=== PATIENT | female | born 1960 | race Caucasian/White ===

== ENCOUNTER 2016-12-31 11:16 | Day surgery (SDC) | payer MEDICARE, MEDICAID ==
[~2016-12-31] VITALS: Ht 170.2 cm; Wt 66.6 kg
[2016-12-31] VITALS (7 sets, daily range): BP systolic 106–122; BP diastolic 66–73; PULSE 55–84; RESP 13–18; O2SAT 93–100
[~2016-12-31 11:16] MED LIST: ALBU8.5H2 INHALATION; ALPR2TAB6 PO; Albuterol 2.5 mg/3 mL Inhalation Solution NEB PRN; DILT120T3 PO; DULO60CA42 PO; Lactated Ringer's 1,000 ML IV ONE; OMEP20CA11 PO; TOPI200T17 PO
[2016-12-31] MEDS ORDERED: Neostigmine 1 mg/mL 10 mL Inj ONE (11:17)
[2016-12-31] MEDS ORDERED: fentaNYL-PF 50 mCg/mL 2 mL Inj ONE (11:17)
[2016-12-31] MEDS ORDERED: Dexamethasone 4 mg/mL Inj ONE (11:17)
[2016-12-31] MEDS ORDERED: Glycopyrrolate 0.2 MG/ML 1mL Inj ONE (11:17)
[2016-12-31] MEDS ORDERED: Ketamine 10 mg/mL 20 mL Inj ONE (11:17)
[2016-12-31] MEDS ORDERED: Ondansetron 2 mg/mL 2 mL Inj ONE (11:17)
[2016-12-31] MEDS ORDERED: Remifentanil 1 mg/3 mL Inj ONE (11:17)
[2016-12-31] MEDS ORDERED: Rocuronium 10 mg/mL 5 mL Inj ONE (11:17)
[2016-12-31] MEDS ORDERED: Propofol 10,000 mCg/mL 20 mL Inj ONE (11:17)
[2016-12-31] MEDS ORDERED: ACET500C49 PO (12:55)
[2016-12-31] MEDS ORDERED: Lactated Ringer's 500 ML IV PRN (14:47)
[2016-12-31] MEDS ORDERED: Lactated Ringer's 1,000 ML IV SCH (14:47)
--- NOTE | 2016-12-31 14:47 | PCM.HPANE ---
Patient Data Surgeon Admitting Provider: Attending Provider:Memo Monterroso MD Primary Care Physician:Christin Gutierrez MD Other Provider:Josefa Snellingham Anesthesia Reason for Visit Papillary Thyroid Cancer Ht/WT & BMI Height (Feet): 5 Height (Inches): 7 Weight (Kilograms): 65.8 Body Mass Index 22.00 Allergies Coded Allergies: Cat Dander (Verified Allergy, Unknown, 12/31/16) Sulfa (Sulfonamide Antibiotics) (Verified Allergy, Unknown, hives, 12/31/16 ) bupropion (Verified Allergy, Unknown, NAUSEA AND MALAISE, 12/31/16) carbamazepine (Verified Allergy, Unknown, nauseated, 12/31/16) oxycodone (Verified Allergy, Unknown, gi upset, 12/31/16) Uncoded Allergies: SEREVENT INHALER (Allergy, Unknown, caused more difficulty breathing, ) Past Anesthesia History Anesthesia History: Denies:: Abnormal Airway, Anesthesia Reactions, Difficult Intubation, Fam Anesthesia Reaction, Fam Malignant Hypertherm, Malignant Hyperthermia Diabetes History Hx Diabetes?: No MRSA MRSA: No Medications Hypertension Medication: No Reported Medications Acetaminophen 500 Mg [id number] Mg PO 12/31/16 Topiramate (Topamax)200 Mg [id number] Mg PO DAILY Ref 0 12/26/16 Omeprazole 20 Mg Capsule.dr20 Mg PO DAILY Ref 0 12/26/16 Diltiazem 120 Mg [id number] Mg PO DAILY 12/26/16 Duloxetine (Cymbalta)60 Mg Capsule.dr60 Mg PO DAILY Ref 0 12/26/16 Alprazolam 2 Mg Tablet2 Mg PO BID PRN For Anxiety Ref 0 12/26/16 Albuterol HFA (Proair HFA)8.5 Gm Hfa.aer.ad2 Puffs INHALATION Q4H PRN For Shortness of Breath #1 INHALER 12/26/16 History History of ENT Problems?: Yes HEENT History: Positive for:: Dysphagia Denies:: Abnormal Airway Cataracts (left eye has dilation problems- floaters- may not dilate correctly) Difficult Intubation Glaucoma Hearing Problem Sinus Problem (with air quality currently- ) TMJ Denture Type: None Teeth Condition: Missing Teeth Hx of Heart Problems?: Yes Cardiovascular History: Positive for:: Irregular Heartbeat (palpitations) Denies:: AICD Heart Murmur Hypertension Pacemaker Peripheral Vascular Hx of Respiratory Problem?: Yes Respiratory History: Positive for:: Asthma Cough (smokers cough) Use of Inhalers / NEBS Denies:: Emphysema Oxygen Administration Pneumonia Tuberculosis (tested pos age 16, took medications "didnt 'have" disease) Use of C-PAP Machine Hx Neurologic Problems?: Yes Neurological History: Positive for:: Headaches (infrequent since menopause ) Seizures (febrile seizure as child ) Denies:: Alzheimer's Disease Dementia Multiple Sclerosis Parkinson's Disease Hx of GI Problems?: Yes Hx of Problems?: No Genitourinary History: Denies:: Kidney Stones Urinary Tract Infection Female Hx: Denies:: Currently (hx of tubal) Problems with Breasts? Skin History: Denies:: History Skin Disorders? Pressure Ulcers Hx Musculoskeletal Problems?: Yes Musculoskeletal History: Positive for:: Osteoarthritis (hands ) Rheumatoid Arthritis (may not be exact diagnosis, sees in [facility]) Denies:: Back Injury Fibromyalgia Joint Replacement Myasthenia Gravis Systemic Lupus Hx of Psycho/Social Problems?: Yes Psycho Social History: Positive for:: Anxiety Hx Surgeries?: Yes (tubal, right inguinal hernia, left ovarian cyst, right foot ) Hx Any Other Health Problems?: Yes Other History: Positive for:: Cancer (current admission problem) Thyroid Disease (current admission problem) History Blood Transfusions: Positive for:: Accept Blood Products? Denies:: Blood Transfusions Hx Diabetes: No Hx Alcohol Use: NoHx Substance Use: NoHave You Smoked inLast 12 mo: Yes Stop/Bang S-Snoring: Do You Snore Loudly: No T-Tired: feel tired, fatigued: Yes O-Obsered: Observed not breath: No P-Blood Pressure: treated: No B- Body Mass Index > 35 kg/m2: No A- Age over 50: Yes N- Neck Large Circumference: No G- Gender Male: No NÉSTOR Total Score: 2 NÉSTOR Risk Assessment: Low Risk, <3 Yes Risk Assessment Category Category 1A: Patient has history of documented sleep apnea, and HAS NOT received any narcotic, sedative or anesthesia administration during this stay. Category 1B: Patient has history of documented sleep apnea, and HAS received any narcotic , sedative or anesthesia administration during this stay Category 2: Patient has SUSPECTED Obstructive Sleep Apnea, and HAS received any narcotic , sedative or anesthesia administration during this stay. Category 3: Patient has SUSPECTED Obstructive Sleep Apnea and HAS NOT received narcotic, sedative or anesthesia administration during this stay. Category 4: Outpatient in Procedural Areas with known sleep apnea or who screen positive for High Risk via the STOP/BANG questionnaire. Exam Exam Vital Signs Vital Signs Date Time Temp Pulse Resp B/P Pulse Ox O2 Delivery O2 Flow Rate FiO2 12/31/16 11:36 36.0 55 15 106/66 99 Room Air General Appearance: Alert HEENT/AIRWAY: MP 2, Neck Movement (from, 3 fb) Lungs: Clear to Auscultation Heart: Regular Rate/Rhythm Plan Impression Patient chart reviewed, patient interviewed and anesthestic plan with risks, benefits, and alternatives discussed, and informed consent obtained. NPO per Anesth. Guidelines: Yes ASA Physical Status: ASA2 Mod Systemic Disease Anesthetic Plan: GA Bene/Risks/Altern/Consents: Yes HP Complete Prior to Induction: Yes Other Discussed GETA. All questions were answered and she agrees to proceed. Fantasma Mcdowell MD Dec 31, 2016 11:52
[2016-12-31] MEDS ORDERED: Ondansetron 2 mg/mL 2 mL Inj IVPUSH PRN ×2 (14:50→16:30)
[2016-12-31] MEDS ORDERED: Phenylephrine 10,000 mCg/mL Inj IVPUSH PRN (14:50)
[2016-12-31] MEDS ORDERED: fentaNYL-PF 50 mCg/mL 2 mL Inj IVPUSH PRN (14:50)
[2016-12-31] MEDS ORDERED: HYDROmorphone 1 mg/mL Inj IVPUSH PRN ×2 (14:50→16:30)
[2016-12-31] MEDS ORDERED: MetoCLOpramide 5 mg/mL 2 mL Inj IVPUSH PRN ×2 (14:50→16:30)
[2016-12-31] MEDS ORDERED: EPHEDrine Sulfate 50 mg/mL Inj IVPUSH PRN (14:50)
[2016-12-31] MEDS ORDERED: Dexamethasone 4 mg/mL Inj IVPUSH PRN (14:50)
[2016-12-31] MEDS ORDERED: Bupivacaine-MPF 0.5% 30 mL Inj INFILTRATE ONE (16:07)
--- NOTE | 2016-12-31 16:12 | PCM.SURGOP ---
Surgical Operative Report Date of Service: Dec 31, 2016 Pre Operative Diagnosis Bilateral thyroid nodules Post Operative Diagnosis Same Procedure: Total thyroidectomy Surgeon and Economics Teacher: Surgeon: Memo Monterroso MD Assistants: Narciso Alvarez MD PGY-3; Shan Watson DO PGY-1 Indication for Procedure 56-year-old woman who has had known bilateral thyroid nodules since 2011, that have all increased in size. On the left, she had a complex nodule measuring 17 x 10 x 14 mm, and on the right, a nodule measuring 16 x 9 x 11 mm. There was no lymphadenopathy of the neck. Her fine-needle aspiration biopsy on the left side came back suspicious for papillary thyroid carcinoma, [place]. she was clinically euthyroid. After discussion of risks and benefits, she agreed to proceed with total thyroidectomy. Findings: There was no lymphadenopathy. The left superior parathyroid gland was identified and preserved. Both recurrent laryngeal nerves were visualized and preserved. Procedure Details After smooth induction of general endotracheal anesthesia, she was placed in the modified beachchair position with the neck extended, and was prepped and draped in wide sterile fashion. A procedural pause was performed according to the SCOAP checklist, and all were found to be in agreement. A transverse collar incision was made. Dissection was carried through the subcutaneous tissue until the platysma muscle was divided. During elevation of the platysma on the right, the right anterior jugular vein was entered inadvertently. The proximal and distal ends needed to be ligated with 3-0 silk suture. Subplatysmal skin flaps were raised superiorly and inferiorly. The median raphae was incised. Dissection began on the left, so the left sternohyoid and sternothyroid muscles were elevated off the thyroid gland. The left middle thyroid vein was divided with the LigaSure device. A plane was developed between the left cricothyroid muscle and the left superior pole. The left superior pole was taken down by dividing branches of the left superior thyroid artery and vein with the LigaSure device. Posterior to the superior pole, the left superior parathyroid gland was visualized and preserved on its blood supply. The inferior pole of the left thyroid lobe was mobilized by dividing venous branches. The left recurrent laryngeal nerve was visualized and its course traced. The left ligament of Rocha was then dissected off the nerve. Once the only remaining attachments were to the trachea anterior to the nerve, attention was turned to the right side. Similarly, the right sternohyoid and sternothyroid muscles were elevated off the underlying thyroid lobe. The right middle thyroid vein was divided with the LigaSure device. A plane was developed between the right superior pole and the cricothyroid muscle. The right superior pole was taken down by sequentially dividing the branches of the right superior thyroid artery and vein with the LigaSure device. The inferior pole was mobilized. The right recurrent laryngeal nerve was visualized and preserved. Branches of the right inferior thyroid artery coursing over the nerve were divided with the LigaSure device. The right ligament of Rocha was dissected free. There was a very small pyramidal lobe, which was dissected off the trachea superiorly. The only remaining attachments were the attachments to the trachea, which were taken down with the LigaSure device. The thyroid gland was dissected free, oriented with a suture, and sent for permanent pathology. There is no palpable lymphadenopathy. Hemostasis was adequate. Both nerves were intact by visual inspection. The left superior parathyroid gland was again identified. The other parathyroid glands were not definitively identified. The median raphae was closed with interrupted 3-0 Vicryl sutures. The platysma muscle was closed with interrupted 3-0 Vicryl sutures. The skin incision was closed with a running 4-0 Monocryl subcuticular stitch. Dermabond was applied to the skin as a dressing. At the end of the case all needle and sponge counts were correct 2. The patient was awakened from anesthesia without difficulty, and taken to the recovery room in satisfactory condition, having tolerated the procedure well. Complications There were no periprocedural complications identified. Surgical Specimen Removed: Yes Specimen sent to Pathology: Yes Surgical Specimen description: Thyroid gland Anesthetic Plan: GA Grafts, Implants: None Output, Estimated Blood Loss: 30 Blood Administration during da silva: No Drains: None Catheters: None copies to: Christin Gutierrez MD, Joshua D MD Dec 31, 2016 16:12
--- NOTE | 2016-12-31 16:34 | PCM.ANEP1 ---
Post Anesthesia PACU Phase 1 Assessment Vital Signs Vital Signs Date Time Temp Pulse Resp B/P Pulse Ox O2 Delivery O2 Flow Rate FiO2 12/31/16 16:31 74 15 118/70 99 Simple Mask 8 12/31/16 16:25 36.5 84 16 122/73 97 Simple Mask 8 12/31/16 11:36 36.0 55 15 106/66 99 Room Air Anesthetic Administered: GA Level of Alertness: Awake, talking FIGUEROA's with Equal Strength: Yes Pain: No Nausea or Vomiting: No CV Function & Hydration Stable: Yes Airway Device: Oxygen Delivery: Simple Mask Lungs: Clear to Auscultation Dermatome Level: Full Sensation PACU Phase 2 Assessment Complications: No Follow up Care: N/A Patient Instructions Provided: N/A Fantasma Mcdowell MD Dec 31, 2016 16:34
[2016-12-31] MEDS ORDERED: HYDROcodone-APAP 5-325 mg Tablet PO PRN (17:05)
[2016-12-31] MEDS: Dextrose 5% 0.45% NaCl 1,000 ML IV SCH (17:53)
[2016-12-31] MEDS: HYDROcodone-APAP 5-325 mg Tablet PO PRN ×2 (18:14→22:27)
--- NOTE | 2016-12-31 18:33 | NUR ---
Admit Patient arrived to room at 1745 and transferred to bed from [facility] with a slider board. HOB at 30 degrees, on room air, IV infusing. Patient was A&OX3 and reported a scratchy pain in her throat. Denied chest pain and shortness of breath. Incision is well approximated and dermabond is present. Oriented to room, call light within reach, and patient settled into bed. Talked with her about precautions such as keeping the HOB up and reporting any swelling.
[2017-01-01 00:51] VITALS: BP 103/60; PULSE 54; RESP 20; O2SAT 100
[2017-01-01] MEDS: Dextrose 5% 0.45% NaCl 1,000 ML IV SCH (03:01)
--- NOTE | 2017-01-01 05:37 | NUR ---
Pain / mobility Pain well controlled with prn Cornelia, denies significant swelling in throat. Tolerating soft diet well. Able to ambulate safely to BR with SBA. IV fluids infusing. Hourly rounding ongoing.
[2017-01-01 06:25] VITALS: BP 105/61; PULSE 61; RESP 16; O2SAT 95
[2017-01-01] MEDS ORDERED: Pantoprazole 20 mg ER24 Tablet PO SCH (06:30)
--- NOTE | 2017-01-01 07:58 | PCM.DISURG ---
Surgical Discharge Instruction Date of Service Jan 01, 2017 Dates of Hospitalization Date of Hospital Admission Providers Admitting Physician: Primary Care Physician: Christin Gutierrez MD Attending Physician: Memo Monterroso MD Discharge Diagnosis Discharge Diagnosis bilateral thyroid nodules Post Operative diagnosis Same Diet Discharge Diet: Other (soft diet for 48 hours, then no restrictions) Activity Discharge Activity-General: No restrictions Dressing and Incisional Care Dressing Care: Other (Dermabond will peel off gradually) Hygiene: May shower Follow Up Plan Follow Up Plan with Dr. Monterroso in 2 weeks Call your provider for: Fever (over 101.5F), Discharge @ incision, pus discharge Memo Monterroso MD Jan 01, 2017 07:58
[2017-01-01] MEDS ORDERED: LEVO125T6 PO (07:59)
[2017-01-01] MEDS ORDERED: HYDR-4003 PO (07:59)
--- NOTE | 2017-01-01 08:29 | PROG NOTE ---
[address] [address] PROGRESS NOTE PATIENT: MIGUE WALLS : 1960 MR#: [id number] ADMIT: 12/31/2016 JOB ID: [id number] DATE: 01/01/2017 SUBJECTIVE: The patient is seen in followup. She had a good night overnight. Pain in the neck is moderate and well controlled with Vicodin. She has no nausea. She is swallowing well. Her voice is good. OBJECTIVE: Temperature 36.3, pulse 61, blood pressure 105/61, saturation 95% on room air. In general, she is sitting up in bed, in no acute distress. Neck: Her incision is well approximated with no hematoma. Chest is clear. Heart: Regular rate and rhythm. No murmurs. Voice is normal. LABORATORIES: Calcium is 8.8, PTH 40. ASSESSMENT AND PLAN: A 56-year-old woman with bilateral thyroid nodules, worrisome for possible papillary thyroid cancer, postoperative day one, status post total thyroidectomy. She is doing well clinically. She will be discharged to home today. She will be given an arbitrary dose of levothyroxine which will need to be adjusted in the outpatient setting. She will followup with me in surgery clinic in two weeks.
[2017-01-01] MEDS ORDERED: Diltiazem CD 120 mg ER24 Capsule PO SCH (08:30)
[2017-01-01] MEDS ORDERED: DULoxetine 30 mg DR Capsule PO SCH (08:30)
[2017-01-01 09:08] VITALS: BP 99/62; PULSE 50; RESP 18; O2SAT 97
[2017-01-01 11:37] VITALS: BP 102/66; PULSE 52; RESP 18; O2SAT 98
--- NOTE | 2017-01-01 11:50 | NUR ---
Discharge Patient discharged home with mother via wheelchair to personal vehicle. Got dressed independently. Discharge information given and gone over with patient including new medications, follow up appointment with Dr. Monterroso, and any restrictions. IV DC'd intact. Personal belongings, discharge information, and prescriptions accompanied patient out.
--- NOTE | 2017-01-02 17:18 | PATH ---
SURGICAL PATHOLOGY Attending Physician:Yoly Bush CASE STATUS: Signed Out PATIENT NAME: MIGUE WALLS PID: [id number] : 1960 DATE COLLECTED:12/31/2016 00:00 SPECIMEN: Thyroid, Thyroidectomy CLINICAL HISTORY: PAPILLARY THYROID CANCER 1). THYROID GLAND, SUTURE - RIGHT SUPERIOR POLE FINAL DIAGNOSIS: 1.THYROID, TOTAL THYROIDECTOMY (WEIGHT 20.6 GRAMS): NEOPLASM OF THE THYROID WITH THE FOLLOWING CHARACTERISTICS: HISTOLOGIC TYPE: PAPILLARY CARCINOMA OF THE THYROID. TUMOR SIZE: MULTIPLE, SCATTERED FOCI OF PAPILLARY CARCINOMA RANGE FROM 1 MM TO 10 MM IN GREATEST DIMENSION. TUMOR LATERALITY: RIGHT AND LEFT LOBES. TUMOR FOCALITY: MULTIFOCAL. ONE CYSTIC FOCUS IN THE RIGHT LOBE (10 MM) AND SIX SOLID FOCI IN THE LEFT LOBE (1 MM, 1 MM, 1 MM, 1.5 MM, 1.5 MM, AND 9 MM). MARGINS: NEGATIVE FOR TUMOR. ANGIOINVASION: NEGATIVE. LYMPHATIC INVASION: NEGATIVE. EXTRATHYROIDAL EXTENSION: NOT PRESENT. LYMPH NODES: NOT SUBMITTED. ADDITIONAL FINDINGS: ONE MINUTE FRAGMENT OF PARATHYROID TISSUE PRESENT ADJACENT TO THE RIGHT THYROID LOBE; CHANGES CONSISTENT WITH PREVIOUS INSTRUMENTATION ARE PRESENT. AJCC CLASSIFICATION: pT1a (7), pNX. PROCEDURE: TOTAL THYROIDECTOMY. ICD10: C73 NOTE: This patient's previous fine needle aspiration cytology report from the left thyroid ([place], [place] [id number]; 08/13/16) was reviewed. These slides were reviewed by my pathologists colleagues Drs. Suzanne Buckley and Derrick Ramirez, who concur with the above interpretation. GROSS DESCRIPTION: The specimen is received in formalin, labeled with the patient's name, sublabeled as thyroid gland, sut. rt sup. pole, and consists of a thyroid gland (20.6 g) and includes the right lobe (4.4 x 2.5 x 1.5 cm), isthmus (2.6 x 1.3 x 1.0 cm) and left lobe (4.3 x 2.3 x 1.5 cm). A black suture indicates the right superior pole. The capsule is red-brown smooth and shiny. The parenchyma is red-brown and cystic (0.1 cm-1.4 cm) with a diffusely semi-translucent glassy cut surface. The cavities contain clear pale-yellow rubbery gelatinous material. No nodules or masses are identified. Ink code: purple-anterior; yellow-posterior. Section code: (A) right superior pole, perpendicularly sectioned, entirely submitted; (B-F) right lobe, serially sectioned and submitted SI, pharmaceutical service representative; (G) right inferior pole, perpendicularly sectioned, pharmaceutical service representative; (H, I) isthmus, serially sectioned and submitted right to left, pharmaceutical service representative; (J) left superior pole, perpendicularly sectioned, entirely submitted; (K-O) left lobe, serially sectioned and submitted SI, pharmaceutical service representative; (P) left inferior pole, perpendicularly sectioned, pharmaceutical service representative. 01/01/17 JM MICRO DESCRIPTION: See diagnosis. ICD-9 CODES: CPT CODES: 1: 61596 Electronically Signed Out Olga Fallon MD [facility] Pathology [facility] [address], [place] [address] Technical component performed at [facility], [address] [place] [address] Ave[address], [place], [address]
== END 2017-01-01 11:45 | disposition home or self-care (01) ==
LOC: SAS 11:16 → OSC 17:52 → SAS 01-01 11:45
PROVIDERS: ATTEND Student in an Organized Health Care Education/Training Program
DX: C73 Malignant neoplasm of thyroid gland (principal); R13.10 Dysphagia, unspecified; R00.2 Palpitations; J45.909 Unspecified asthma, uncomplicated; M06.9 Rheumatoid arthritis, unspecified; F41.9 Anxiety disorder, unspecified; F17.210 Nicotine dependence, cigarettes, uncomplicated; Z79.899 Other long term (current) drug therapy
CPT/HCPCS: 36415; 60240; 82310; 83970; J1100; J2250; J2405; J2704; J2710; J3010; J7042; J7120